=== PATIENT | female | born 1940 | race Caucasian/White ===

== ENCOUNTER 2023-05-02 18:24 | Emergency (ER) | payer MEDICARE, SELFPAY ==
[2023-05-02] VITALS (20 sets, daily range): BP systolic 124–195; BP diastolic 86–106; PULSE 55–63; RESP 20; TEMP 36.9; O2SAT 87–100; BMI 25.8
--- NOTE | 2023-05-02 18:30 | CRLHL7_ITS ---
For Patients: As a result of the Cures Act, medical imaging exams and procedure reports are released immediately into your electronic medical record. You may view this report before your referring provider. If you have questions, please contact your health care provider. Indication: Fall, dementia Comparison: None available. Technique: AP internal, external rotation, and scapular-Y views of the left shoulder were obtained Findings: There is no displaced fracture or dislocation. Degenerative changes of the acromioclavicular and glenohumeral joints are appreciated with loss of joint space and marginal osteophyte formation. The soft tissues are unremarkable. Impression: Moderate degenerative changes of the shoulder without acute osseous abnormality. Dictated by Erlin Webster MD @ 05/02/2023 8:41:58 PM (Electronically Signed)
--- NOTE | 2023-05-02 18:30 | CRLHL7_ITS ---
For Patients: As a result of the Cures Act, medical imaging exams and procedure reports are released immediately into your electronic medical record. You may view this report before your referring provider. If you have questions, please contact your health care provider. INDICATION: Fall, dementia and left rib pain TECHNIQUE: Single view chest with AP and oblique views of the left chest COMPARISON: None available. FINDINGS: There is hyperinflation and interstitial prominence likely representing mild pulmonary vascular congestion. There is minimal basilar atelectasis. There is no pneumothorax. The cardiac silhouette is mildly prominent. Minimally displaced fracture of the posterior left 2nd rib. Additional nondisplaced injury of the 3rd rib is appreciated. The bony thorax is otherwise intact. IMPRESSION: Hyperinflation with diffusely increased interstitial markings likely representing pulmonary vascular congestion. Minimally displaced fracture of left 2nd rib with additional nondisplaced injury of the left 3rd rib. If pain and clinical symptoms persist, subtle, non-displaced injuries are not entirely excluded. Dictated by Erlin Webster MD @ 05/02/2023 8:45:12 PM (Electronically Signed)
--- NOTE | 2023-05-02 18:31 | CRLHL7_ITS ---
For Patients: As a result of the Century Cures Act, medical imaging exams and procedure reports are released immediately into your electronic medical record. You may view this report before your referring provider. If you have questions, please contact your health care provider. INDICATION: Fall. Dementia. TECHNIQUE: CT of the head without contrast. Coronal and sagittal reformats are included. COMPARISON: None. FINDINGS: No acute intracranial hemorrhage. No mass effect or midline shift. No hydrocephalus or extra-axial collections. Scattered white matter hypoattenuation, typical for chronic microvascular ischemic changes. Mild generalized parenchymal volume loss. Bulky parafalcine ossification. Intracranial vascular calcifications. No acute osseous abnormalities. Mastoid air cells and paranasal sinuses are clear. Normal soft tissues. IMPRESSION: IMPRESSION: 1. No acute intracranial abnormalities. Please note that all CT scans at this facility use dose modulation, iterative reconstruction, and/or weight-based dosing when appropriate to reduce radiation dose to as low as reasonably achievable. Dictated by Alex Lopez MD @ 05/02/2023 8:37:18 PM (Electronically Signed)
--- NOTE | 2023-05-02 18:31 | CRLHL7_ITS ---
For Patients: As a result of the Century Cures Act, medical imaging exams and procedure reports are released immediately into your electronic medical record. You may view this report before your referring provider. If you have questions, please contact your health care provider. INDICATION: Fall. Dementia. TECHNIQUE: CT of the cervical spine without contrast. Coronal and sagittal reformats are included. COMPARISON: None. FINDINGS: No acute fracture or traumatic malalignment of the cervical spine. Craniocervical junction alignment is maintained. Diffuse mild to moderate disc degeneration. Multilevel uncovertebral/facet arthrosis with mild to moderate bony neural foraminal stenosis and C4-5 on the left, and low-grade elsewhere. No high grade spinal canal stenosis as far as visualized. Intracranial vascular calcifications. No cervical soft tissue mass. The visualized pulmonary apices are clear. IMPRESSION: 1. No acute fracture or traumatic malalignment of the cervical spine. Please note that all CT scans at this facility use dose modulation, iterative reconstruction, and/or weight-based dosing when appropriate to reduce radiation dose to as low as reasonably achievable. Dictated by Alex Lopez MD @ 05/02/2023 8:40:26 PM (Electronically Signed)
--- NOTE | 2023-05-02 18:44 | ED.GENADULT ---
HPI - General Adult General Chief complaint: Fall/Minor Trauma Stated complaint: Fall Time Seen by Provider: 05/02/23 18:30 Source: patient Mode of arrival: ambulatory Limitations: no limitations History of Present Illness HPI narrative: 82-year-old female with history of dementia presents today after falling at home. She was sitting out on the deck when she stood up to walk down 3 steps and she lost her footing and fell down the stairs. She is complaining of left shoulder and left chest wall pain. She is on blood thinners. Her is here with her any is giving the history. He called EMS after she fell. She was able to get up. She did not lose consciousness. She is at her baseline confusion according to her . He is unsure if she hit her head or not. She is not complaining of headache, changes in her vision or ringing in her ears. She denies any neck or back pain. TTA was called. Related Data Home Medications Medication Instructions Recorded Confirmed amlodipine 5 mg tablet 5 mg PO DAILY 05/02/23 05/02/23 clopidogrel 75 mg tablet 75 mg PO DAILY 05/02/23 05/02/23 levothyroxine 125 mcg capsule 125 mcg PO DAILY 05/02/23 05/02/23 losartan 50 mg tablet 50 mg PO DAILY 05/02/23 05/02/23 metformin 750 mg tablet,extended 750 mg PO DAILY 05/02/23 05/02/23 release 24 hr metoprolol tartrate 50 mg tablet 50 mg PO DAILY 05/02/23 05/02/23 rivastigmine tartrate 3 mg capsule 3 mg PO DAILY 05/02/23 05/02/23 sertraline 50 mg tablet 50 mg PO DAILY 05/02/23 05/02/23 Allergies Allergy/AdvReac Type Severity Reaction Status Date / Time cyanocobalamin (vitamin B12) AdvReac Severe Verified 05/02/23 18:37 Sulfa (Sulfonamide AdvReac Severe Anaphylaxis Verified 05/02/23 18:37 Antibiotics) bactrim AdvReac Severe Uncoded 05/02/23 18:37 Review of Systems Status of ROS: Reports: 6 or more systems reviewed and unremarkable except as noted in History and below PFSH PFS Social History Smoking Status: Never smoker Do you use any of these nicotine containing products: None Second hand tobacco smoke exposure: No How often do you have a drink containing alcohol: never How often do you have six or more drinks on one occasion: Never AUDIT-C Alcohol total score: 0 Non-prescribed substance use: denies use service: No Exam Narrative: Exam Narrative: Well-nourished well-developed elderly patient in no acute distress. Awake and cooperative. She clearly has dementia. She speaks slowly. Often repeats herself. GCS is 15. HEENT: Normocephalic atraumatic. Pupils are equally round reactive to light. Extraocular muscles are intact. Conjunctivae are moist without any icterus noted. Moist mucous membranes. Posterior pharynx is normal. Neck is soft without any lymphadenopathy or thyromegaly. No masses are appreciated. Cardiovascular: Heart is regular rate and rhythm S1 and S2 are present without any murmurs. Lungs: Clear to auscultation bilaterally no wheezes rhonchi or rales are appreciated. Deep breaths cause discomfort over the lateral left chest wall. Abdomen: Soft and nontender nondistended with normal bowel sounds. No guarding or rebound. No masses or organomegaly appreciated. Extremities: Bilateral lower extremities are without edema. Normal DP and PT pulses. She has tenderness with firm palpation of the left shoulder. There are no abrasion or skin changes over the shoulder. There is no swelling. She has good range of motion at the left shoulder. Skin: Well perfused without any obvious rashes. She does have a very superficial abrasion over the left lower anterior bey. Back: Normal appearance. No tenderness over the cervical, thoracic or lumbar spine. She can sit up and lay back down without any discomfort. She can flex and extend at the neck without pain. No pain with rotation or side way bending at the neck. Const: Vital Signs, click to edit/add: Vital Signs - 24 hr 05/02/23 18:28 Temperature 98.5 F Pulse Rate [Right Pulse Oximeter] 58 L Respiratory Rate 20 Blood Pressure [Ri ght Upper Arm] 124/106 H Pulse Oximetry 97 Oxygen Delivery Me thod Room Air Course Course ED Course: Given the patient's history of dementia and potentially distracting injuries we did opt to do a head and neck CT as well as shoulder and rib x-rays. Head and neck were unremarkable, shoulder was unremarkable. Rib x-ray revealed fractures of the posterior 2nd and 3rd ribs. Given the location of these fractures I did opt to CT the chest as well. CT chest showed multiple rib fractures, the possibility of a lung contusion and a clavicular fracture. I did speak to ER provider at [facility] [place] was in agreement with transfer for trauma team evaluation. Vital Signs Vital signs: Initial Vital Signs Temperature 98.5 F 05/02/23 18:28 Temperature Source Temporal Artery Scan 05/02/23 18:28 Pulse Rate 58 L 05/02/23 18:28 Pulse Rhythm Regular 05/02/23 18:28 Pulse Strength 3+ Normal 05/02/23 18:28 Respiratory Rate 20 05/02/23 18:28 Blood Pressure 124/106 H 05/02/23 18:28 Blood Pressure Mean 112 H 05/02/23 18:28 Blood Pressure Position Sitting 05/02/23 18:28 Pulse Oximetry 97 05/02/23 18:28 Oxygen Delivery Method Room Air 05/02/23 18:28 Vital Signs Temperature 98.5 F 05/02/23 18:28 Pulse Rate 58 L 05/02/23 18:28 Respiratory Rate 20 05/02/23 18:28 Blood Pressure 124/106 H 05/02/23 18:28 Pulse Oximetry 97 05/02/23 18:28 Oxygen Delivery Method Room Air 05/02/23 18:28 Temperature 98.5 F 05/02/23 18:28 Pulse Rate 59 L 05/02/23 21:40 Respiratory Rate 20 05/02/23 18:28 Blood Pressure 195/86 H 05/02/23 19:42 Pulse Oximetry 95 05/02/23 21:40 Oxygen Delivery Method Room Air 05/02/23 18:28 Medical Decision Making [facility] Narrative Medical decision making narrative: 83-year-old female status post a fall down 3 stairs today with multiple rib fractures, clavicular fracture, and possible lung contusion. Patient will be transferred to [facility] [place] for trauma team evaluation. Imaging Data CT scan - head: Attestation: I have reviewed the pertinent imaging results. Radiologist's impression: CT of the head without contrast. Coronal and sagittal reformats are included. COMPARISON: None. FINDINGS: No acute intracranial hemorrhage. No mass effect or midline shift. No hydrocephalus or extra-axial collections. Scattered white matter hypoattenuation, typical for chronic microvascular ischemic changes. Mild generalized parenchymal volume loss. Bulky parafalcine ossification. Intracranial vascular calcifications. No acute osseous abnormalities. Mastoid air cells and paranasal sinuses are clear. Normal soft tissues. IMPRESSION: IMPRESSION: 1. No acute intracranial abnormalities. CT cervical spine: Attestation: I have reviewed the pertinent imaging results. Radiologist's impression: CT of the cervical spine without contrast. Coronal and sagittal reformats are included. COMPARISON: None. FINDINGS: No acute fracture or traumatic malalignment of the cervical spine. Craniocervical junction alignment is maintained. Diffuse mild to moderate disc degeneration. Multilevel uncovertebral/facet arthrosis with mild to moderate bony neural foraminal stenosis and C4-5 on the left, and low-grade elsewhere. No high grade spinal canal stenosis as far as visualized. Intracranial vascular calcifications. No cervical soft tissue mass. The visualized pulmonary apices are clear. IMPRESSION: 1. No acute fracture or traumatic malalignment of the cervical spine. X-ray shoulder: Attestation: I have reviewed the pertinent imaging results. Radiologist's impression: AP internal, external rotation, and scapular-Y views of the left shoulder were obtained Findings: There is no displaced fracture or dislocation. Degenerative changes of the acromioclavicular and glenohumeral joints are appreciated with loss of joint space and marginal osteophyte formation. The soft tissues are unremarkable. Impression: Moderate degenerative changes of the shoulder without acute osseous abnormality. Rib x-ray: Attestation: I have reviewed the pertinent imaging results. Radiologist's impression: Single view chest with AP and oblique views of the left chest COMPARISON: None available. FINDINGS: There is hyperinflation and interstitial prominence likely representing mild pulmonary vascular congestion. There is minimal basilar atelectasis. There is no pneumothorax. The cardiac silhouette is mildly prominent. Minimally displaced fracture of the posterior left 2nd rib. Additional nondisplaced injury of the 3rd rib is appreciated. The bony thorax is otherwise intact. IMPRESSION: Hyperinflation with diffusely increased interstitial markings likely representing pulmonary vascular congestion. Minimally displaced fracture of left 2nd rib with additional nondisplaced injury of the left 3rd rib. If pain and clinical symptoms persist, subtle, non-displaced injuries are not entirely excluded. CT scan - chest: Attestation: I have reviewed the pertinent imaging results. Radiologist's impression: CT chest without contrast. COMPARISON: None. FINDINGS: Lungs and Airways: Motion. Calcified granulomas. Azygos lobe, normal variant. Scattered areas of mosaic attenuation. Basilar and lingular predominant areas of linear airspace opacities likely linear atelectasis/linear fibrosis. No discrete mass. No endoluminal lesion. Nodular linear airspace opacities in the periphery of the lingula axial image 54, indeterminate however potentially reflecting nodular atelectasis. Other differential considerations include small pulmonary contusion. Heart and Mediastinum: Atrophic versus resected thyroid. No axillary or supraclavicular lymphadenopathy. No mediastinal, hilar or retrocrural lymphadenopathy. Normal heart size. Normal caliber aorta. Atherosclerotic calcifications of the aorta and its branches. Coronary artery calcifications. Mitral annular calcifications. Pleura: The pleural spaces are normal. Abdomen: Calcified splenic granulomas. Bones and soft tissues: Acute left posterolateral 3rd, and posterior 4th and 6th rib fractures. Acute anterolateral left 7th and 8th nondisplaced rib fractures. Acute complete nondisplaced distal left clavicular fracture extending into the AC joint space. IMPRESSION: 1. Acute left posterolateral 3rd, and posterior 4th and 6th rib fractures. Acute anterolateral left 7th and 8th nondisplaced rib fractures. Acute complete nondisplaced distal left clavicular fracture extending into the AC joint space. 2. Nodular linear airspace opacities in the periphery of the lingula, indeterminate however potentially reflecting nodular atelectasis. Other differential considerations include small pulmonary contusion. Recommend unenhanced chest CT in 3 months to document resolution and to assess for underlying malignant potential. Discharge Plan Discharge Clinical Impression: Multiple fractures of ribs, Contusion of lung, Clavicle fracture Patient Disposition: General Acute Hospital Discharge Location: [facility] [place][Note 3]
--- NOTE | 2023-05-02 21:03 | CRLHL7_ITS ---
For Patients: As a result of the Century Cures Act, medical imaging exams and procedure reports are released immediately into your electronic medical record. You may view this report before your referring provider. If you have questions, please contact your health care provider. INDICATION: fall TECHNIQUE: CT chest without contrast. COMPARISON: None. FINDINGS: Lungs and Airways: Motion. Calcified granulomas. Azygos lobe, normal variant. Scattered areas of mosaic attenuation. Basilar and lingular predominant areas of linear airspace opacities likely linear atelectasis/linear fibrosis. No discrete mass. No endoluminal lesion. Nodular linear airspace opacities in the periphery of the lingula axial image 54, indeterminate however potentially reflecting nodular atelectasis. Other differential considerations include small pulmonary contusion. Heart and Mediastinum: Atrophic versus resected thyroid. No axillary or supraclavicular lymphadenopathy. No mediastinal, hilar or retrocrural lymphadenopathy. Normal heart size. Normal caliber aorta. Atherosclerotic calcifications of the aorta and its branches. Coronary artery calcifications. Mitral annular calcifications. Pleura: The pleural spaces are normal. Abdomen: Calcified splenic granulomas. Bones and soft tissues: Acute left posterolateral 3rd, and posterior 4th and 6th rib fractures. Acute anterolateral left 7th and 8th nondisplaced rib fractures. Acute complete nondisplaced distal left clavicular fracture extending into the AC joint space. IMPRESSION: 1. Acute left posterolateral 3rd, and posterior 4th and 6th rib fractures. Acute anterolateral left 7th and 8th nondisplaced rib fractures. Acute complete nondisplaced distal left clavicular fracture extending into the AC joint space. 2. Nodular linear airspace opacities in the periphery of the lingula, indeterminate however potentially reflecting nodular atelectasis. Other differential considerations include small pulmonary contusion. Recommend unenhanced chest CT in 3 months to document resolution and to assess for underlying malignant potential. Please note that all CT scans at this facility use dose modulation, iterative reconstruction, and/or weight-based dosing when appropriate to reduce radiation dose to as low as reasonably achievable. Dictated by Hu Stinson MD @ 05/02/2023 11:19:03 PM (Electronically Signed)
[2023-05-02] MEDS: HYDROCODONE-ACETAMIN 5-325 MG 1 TAB PO (21:27)
--- NOTE | 2023-05-02 23:31 | ED.NURSE ---
Call placed to patient's , [place]. Updated that patient has multiple rib fractures and a clavicle fracture and will be transferring to [facility] [place] for higher level of care. verbalized understanding and agreement with plan. All questions answered.
--- NOTE | 2023-05-03 00:22 | ED.NURSE ---
Report called to [facility] communications RN. All questions answered. They would like a call when patient leaves the facility.
== END 2023-05-03 00:53 | disposition short-term general hospital (02) ==
PROVIDERS: Emergency Provider Family Medicine
DX: S27.321A Contusion of lung, unilateral, initial encounter (principal); S22.42XA Multiple fractures of ribs, left side, initial encounter for closed fracture; S42.032A Displaced fracture of lateral end of left clavicle, initial encounter for closed fracture; W10.9XXA Fall (on) (from) unspecified stairs and steps, initial encounter
CPT/HCPCS: 70450; 71101; 71250; 72125; 73030; 99285; 99291; A9270

== ENCOUNTER 2023-05-03 00:45 | Outpatient (CLI) | payer MEDICARE, BC, SELFPAY | END 2023-05-03 00:46 | disposition home or self-care (01) | LOC: AMB 05-24 01:03 | PROVIDERS: Visit Provider Family Medicine | DX: S42.009S Fracture of unspecified part of unspecified clavicle, sequela (principal); S27.329S Contusion of lung, unspecified, sequela; S22.49XS Multiple fractures of ribs, unspecified side, sequela | CPT/HCPCS: A0425; A0426 ==